=== PATIENT | male | born 1935 | race Caucasian/White ===

== ENCOUNTER 2017-06-20 07:42 | Day surgery (SDC) | payer OTHER ==
[~2017-06-20] VITALS: Ht 190.5 cm; Wt 89.8 kg
[2017-06-20 08:30] VITALS: BP 153/82
[2017-06-20] MEDS ORDERED: PLEASE ENTER ALLERGIES MC SCH ×2 (08:30)
[2017-06-20] MEDS ORDERED: PLEASE ENTER HEIGHT AND WEIGHT MC SCH (08:30)
[2017-06-20] MEDS ORDERED: SODIUM CHLORIDE 0.9% 1,000 ML IV SCH (08:32)
[2017-06-20] MEDS ORDERED: MIDAZOLAM 1 MG/ML, 5ML ONE (08:52)
[2017-06-20] MEDS ORDERED: FLUMAZENIL 0.1 MG/1 ML, 5ML ONE (08:52)
[2017-06-20] MEDS ORDERED: NALOXONE 1 MG/ML, 2ML ONE (08:52)
[2017-06-20] MEDS ORDERED: FENTANYL PF 100 MCG/2ML ONE ×2 (08:52)
[2017-06-20] MEDS ORDERED: VANCOMYCIN PMX 1GM/200ML 200 ML IV ONE (09:00)
[2017-06-20] MEDS ORDERED: LIDOCAINE 2%, 20ML ONE (09:17)
== END 2017-06-20 12:30 ==
LOC: OUT 07:42
PROVIDERS: ATTEND Student in an Organized Health Care Education/Training Program
DX: N31.9 Neuromuscular dysfunction of bladder, unspecified (principal); I25.2 Old myocardial infarction; I10 Essential (primary) hypertension; Z88.0 Allergy status to penicillin
CPT/HCPCS: 51102; 75989; 76942; 99156; 99157; C1725; C1769; C1894; J2250; J3010; J3370; J3490; J7030; J2310

== ENCOUNTER 2018-02-05 16:04 | Inpatient (IN) | payer OTHER ==
[~2018-02-05] VITALS: Ht 190.5 cm; Wt 92.4 kg
[2018-02-05] MEDS ORDERED: ASPI-614 PO (16:47)
[2018-02-05] MEDS ORDERED: AMLO5TAB2 PO (16:47)
[2018-02-05] MEDS ORDERED: METO50TA4 PO (16:47)
[2018-02-05] MEDS ORDERED: MULT-412 PO (16:47)
[2018-02-05] MEDS ORDERED: ATOR40TA78 PO (16:47)
[2018-02-05] MEDS ORDERED: ASPIRIN 81 MG TABLET CHEW ONE (16:54)
[2018-02-05] MEDS ORDERED: ASPIRIN 81 MG TABLET CHEW PO ONE (17:00)
[2018-02-05 17:09] LABS: BASOPHILS # (AUTO) 0.02 x10^3/uL (0-0.1); BASOPHILS % (AUTO) 0 % (0-1); EOSINOPHILS # (AUTO) 0.13 x10^3/uL (0-0.4); EOSINOPHILS % (AUTO) 2 % (1-7); LYMPHOCYTES # (AUTO) 1.34 x10^3/uL (1-3.4); LYMPHOCYTES % (AUTO) 17 % (22-44); MD NO; MEAN CORPUSCULAR HEMOGLOBIN 31.6 pg (27.5-34.5); MEAN CORPUSCULAR HGB CONC 34.5 g/dL (33.2-36.2); MEAN CORPUSCULAR VOLUME 91.6 fL (81-97); MEAN PLATELET VOLUME 7.2 fL (7.4-10.4); MONOCYTES # (AUTO) 0.87 x10^3/uL (0.2-0.8); MONOCYTES % (AUTO) 11 % (2-9); NEUTROPHILS # (AUTO) 5.63 x10^3/uL (1.8-6.8); NEUTROPHILS % (AUTO) 71 % (42-75); PLATELET COUNT 190 x10^3/uL (130-400); RED BLOOD COUNT 4.69 x10^6/uL (4.38-5.82); RED CELL DISTRIBUTION WIDTH 14.2 % (9.4-14.8)
[2018-02-05 17:18] LABS: ALANINE AMINOTRANSFERASE 34 U/L (12-78); ALBUMIN 3.9 g/dL (3.4-5.0); ANION GAP 6 mmol/L (5-15); CALCIUM 9.2 mg/dL (8.5-10.1); CHLORIDE 104 mmol/L (98-107); CREATININE 1.26 mg/dL (0.7-1.3)
[2018-02-05 17:22] LABS: ALKALINE PHOSPHATASE 102 U/L (45-117); BILIRUBIN,TOTAL 1.2 mg/dL (0.2-1.0); TOTAL PROTEIN 8.2 g/dL (6.4-8.2); TROPONIN I 0.066 ng/mL (0.000-0.045)
[2018-02-05 20:00] VITALS: BP 176/87
[2018-02-05] MEDS ORDERED: SODIUM CHLORIDE FLUSH 10ML SYR IVF PRN (20:00)
[2018-02-05] MEDS ORDERED: morphine SULFATE 10 MG/ML, 1ML IVPush PRN (20:00)
[2018-02-05] MEDS ORDERED: DOCUSATE 100 MG CAPSULE PO PRN (20:00)
[2018-02-05] MEDS ORDERED: hydrALAzine 20 MG/ML, 1ML IVPush PRN (20:00)
[2018-02-05] MEDS ORDERED: ONDANSETRON 2MG/ML, 2ML IVPush PRN (20:00)
[2018-02-05] MEDS ORDERED: OXYcodone IR 5MG TABLET PO PRN (20:00)
[2018-02-05] MEDS ORDERED: ONDANSETRON ODT 4 MG PO PRN (20:00)
[2018-02-05] MEDS ORDERED: PROMETHAZINE 25 MG/ML, 1ML IM PRN (20:00)
[2018-02-05] MEDS ORDERED: ACETAMINOPHEN 325 MG TABLET PO PRN (20:00)
[2018-02-05] MEDS ORDERED: POLYETHYLENE GLYCOL 17 GM PACKET PO PRN (20:00)
[2018-02-05] MEDS ORDERED: BISACODYL 10 MG SUPP PR PRN (20:00)
[2018-02-05 20:41] LABS: FREE T4 (FREE THYROXINE) 1.2 ng/dL (0.76-1.46); HEMOGLOBIN A1C 5.7 % (4.2-6.3); THYROID STIMULATING HORMONE 2.31 mIU/L (0.358-3.740)
[2018-02-05] MEDS: HEPARIN 5,000 UNITS/ML, 1ML SQ SCH (22:09)
[2018-02-05] MEDS: LOSARTAN 25MG TABLET PO SCH (22:09)
[2018-02-05] MEDS: ATORVASTATIN 40 MG TABLET PO SCH (22:09)
[2018-02-05] MEDS ORDERED: OMNIPAQUE 350 MG/ML, 100ML BOTTLE ONE (22:12)
[2018-02-05 22:13] VITALS: BP 169/78
[2018-02-06] MEDS ORDERED: POTASSIUM CHLORIDE 40 MEQ in SODIUM CHLORIDE 0.9% 500 ML IV ONE
[2018-02-06 00:04] LABS: MICROSCOPIC AUTO
[2018-02-06 00:05] LABS: CULTURE INDICATED? YES
[2018-02-06 00:15] LABS: TROPONIN I 0.346 ng/mL (0.000-0.045)
[2018-02-06 02:00] VITALS: BP 144/68
[2018-02-06 05:32] LABS: BASOPHILS # (AUTO) 0.03 x10^3/uL (0-0.1); BASOPHILS % (AUTO) 0 % (0-1); EOSINOPHILS # (AUTO) 0.14 x10^3/uL (0-0.4); EOSINOPHILS % (AUTO) 2 % (1-7); LYMPHOCYTES # (AUTO) 0.95 x10^3/uL (1-3.4); LYMPHOCYTES % (AUTO) 12 % (22-44); MD NO; MEAN CORPUSCULAR HEMOGLOBIN 31.3 pg (27.5-34.5); MEAN CORPUSCULAR HGB CONC 34.4 g/dL (33.2-36.2); MEAN CORPUSCULAR VOLUME 90.8 fL (81-97); MEAN PLATELET VOLUME 7.3 fL (7.4-10.4); MONOCYTES % (AUTO) 9 % (2-9); NEUTROPHILS % (AUTO) 77 % (42-75); PLATELET COUNT 138 x10^3/uL (130-400); RED BLOOD COUNT 4.03 x10^6/uL (4.38-5.82); RED CELL DISTRIBUTION WIDTH 14.3 % (9.4-14.8)
[2018-02-06 05:40] LABS: CHLORIDE 104 mmol/L (98-107)
[2018-02-06 05:51] LABS: TROPONIN I 0.423 ng/mL (0.000-0.045)
[2018-02-06 05:58] LABS: ALANINE AMINOTRANSFERASE 28 U/L (12-78); ALBUMIN 3.1 g/dL (3.4-5.0); ALKALINE PHOSPHATASE 80 U/L (45-117); ANION GAP 8 mmol/L (5-15); BILIRUBIN,TOTAL 1.4 mg/dL (0.2-1.0); CALCIUM 8.4 mg/dL (8.5-10.1); CHOL/HDL RATIO 2.8; CHOLESTEROL, TOTAL 99 mg/dL (140-239); CREATININE 1.16 mg/dL (0.7-1.3); HDL CHOL % 35 % (26-37); HDL CHOLESTEROL (DIRECT) 35 mg/dL (40-60); LDL CHOLESTEROL,CALCULATED 47 mg/dL (54-169); LDL/HDL RATIO 1.3 (0.5-3.0); TOTAL PROTEIN 6.8 g/dL (6.4-8.2); TRIGLYCERIDES 86 mg/dL (50-200); VLDL CHOLESTEROL 17 mg/dL (0-25)
[2018-02-06] MEDS: ASPIRIN 325 MG TABLET EC PO SCH (06:00)
[2018-02-06] MEDS: HEPARIN 5,000 UNITS/ML, 1ML SQ SCH ×3 (06:01→21:15)
[2018-02-06 06:55] VITALS: BP 161/75
[2018-02-06] MEDS ORDERED: ASPIRIN 81 MG TABLET CHEW PO SCH (09:00)
[2018-02-06] MEDS: METOPROLOL SUCCINATE 50 MG TAB.ER.24H PO SCH (09:10)
[2018-02-06] MEDS: MULTIVITAMINS/MINERALS TABLET PO SCH (09:10)
[2018-02-06] MEDS: LOSARTAN 25MG TABLET PO SCH ×2 (09:10→21:14)
[2018-02-06] MEDS: AMLODIPINE 5 MG TABLET PO SCH (09:10)
[2018-02-06 10:45] VITALS: BP 155/74
[2018-02-06 11:16] LABS: TROPONIN I 0.785 ng/mL (0.000-0.045)
[2018-02-06] MEDS ORDERED: REGADENOSON 0.4 MG/5 ML SYRINGE ONE (13:13)
[2018-02-06 14:49] VITALS: BP 164/73
[2018-02-06 18:51] VITALS: BP 149/79
[2018-02-06] MEDS: ATORVASTATIN 40 MG TABLET PO SCH (21:15)
[2018-02-07 01:07] VITALS: BP 153/70
[2018-02-07] MEDS: HEPARIN 5,000 UNITS/ML, 1ML SQ SCH ×2 (06:02→14:26)
[2018-02-07] MEDS: ASPIRIN 325 MG TABLET EC PO SCH (06:02)
[2018-02-07 07:51] LABS: BASOPHILS # (AUTO) 0.02 x10^3/uL (0-0.1); BASOPHILS % (AUTO) 0 % (0-1); EOSINOPHILS # (AUTO) 0.16 x10^3/uL (0-0.4); EOSINOPHILS % (AUTO) 3 % (1-7); LYMPHOCYTES # (AUTO) 1.02 x10^3/uL (1-3.4); LYMPHOCYTES % (AUTO) 16 % (22-44); MD NO; MEAN CORPUSCULAR HEMOGLOBIN 31.5 pg (27.5-34.5); MEAN CORPUSCULAR HGB CONC 34.5 g/dL (33.2-36.2); MEAN CORPUSCULAR VOLUME 91.3 fL (81-97); MEAN PLATELET VOLUME 7.5 fL (7.4-10.4); MONOCYTES # (AUTO) 0.63 x10^3/uL (0.2-0.8); MONOCYTES % (AUTO) 10 % (2-9); NEUTROPHILS # (AUTO) 4.42 x10^3/uL (1.8-6.8); NEUTROPHILS % (AUTO) 71 % (42-75); PLATELET COUNT 153 x10^3/uL (130-400); RED BLOOD COUNT 4.46 x10^6/uL (4.38-5.82); RED CELL DISTRIBUTION WIDTH 14.2 % (9.4-14.8)
[2018-02-07 07:54] LABS: ANION GAP 8 mmol/L (5-15); CALCIUM 8.9 mg/dL (8.5-10.1); CHLORIDE 106 mmol/L (98-107); CREATININE 1.22 mg/dL (0.7-1.3)
[2018-02-07 07:58] LABS: TROPONIN I 0.675 ng/mL (0.000-0.045)
[2018-02-07 08:06] VITALS: BP 161/79
[2018-02-07] MEDS: MULTIVITAMINS/MINERALS TABLET PO SCH (08:07)
[2018-02-07] MEDS: LOSARTAN 25MG TABLET PO SCH (08:07)
[2018-02-07] MEDS: METOPROLOL SUCCINATE 50 MG TAB.ER.24H PO SCH (08:07)
[2018-02-07] MEDS: AMLODIPINE 5 MG TABLET PO SCH (08:07)
[2018-02-07 14:45] VITALS: BP 164/81
[2018-02-07] MEDS ORDERED: LOSA25TA2 PO (16:38)
[2018-02-07] MEDS ORDERED: AMLO5TAB2 PO (16:38)
== END 2018-02-07 20:22 | disposition home or self-care (01) | DRG 313 ==
LOC: ED 19:36 → EDIP 19:38 → 5SO 20:45
PROVIDERS: ADMIT Internal Medicine; ATTEND Internal Medicine
DX: R07.89 Other chest pain (principal); N39.0 Urinary tract infection, site not specified; J98.11 Atelectasis; I24.8 Other forms of acute ischemic heart disease; I50.9 Heart failure, unspecified; I11.0 Hypertensive heart disease with heart failure; I25.10 Atherosclerotic heart disease of native coronary artery without angina pectoris; E78.5 Hyperlipidemia, unspecified; E87.6 Hypokalemia; Z95.0 Presence of cardiac pacemaker; Z95.1 Presence of aortocoronary bypass graft; Z79.899 Other long term (current) drug therapy; Z79.1 Long term (current) use of non-steroidal anti-inflammatories (NSAID); Z90.49 Acquired absence of other specified parts of digestive tract; Z88.0 Allergy status to penicillin; Z91.040 Latex allergy status
CPT/HCPCS: 0399T; 36415; 71045; 71275; 78452; 80048; 80053; 80061; 81001; 83036; 83735; 83880; 84439; 84443; 84484; 85025; 85379; 87077; 87086; 87186; 93005; 93017; 93306; J1644; J2785; J3480; Q9967; A9502; C9898; J7040

== ENCOUNTER 2019-02-13 12:55 | Emergency (ER) | payer MEDICARE, OTHER ==
[~2019-02-13] VITALS: Ht 190.5 cm; Wt 92.0 kg
[~2019-02-13 12:55] MED LIST: AMLO-150 PO; ASPI-614 PO; ATOR40TA78 PO; LOSA25TA2 PO; METO50TA4 PO; MULT-412 PO
[2019-02-13] MEDS ORDERED: FOSFOMYCIN 3 GM PACKET PO STA (13:53)
[2019-02-13] MEDS ORDERED: FOSFOMYCIN 3 GM PACKET ONE (14:11)
[2019-02-13] MEDS ORDERED: LOSA50TA14 PO (14:25)
[2019-02-13] MEDS ORDERED: VIT1CAPS11 PO (14:25)
[2019-02-13 14:38] VITALS: BP 127/52
--- NOTE | 2019-02-13 14:39 | NUR ---
Patient/Caregiver given discharge instructions and they have confirmed that they understand the instructions. Patient ambulatory with steady gait.
== END 2019-02-13 14:54 | disposition home or self-care (01) ==
LOC: ED 14:42
DX: T83.511A Infection and inflammatory reaction due to indwelling urethral catheter, initial encounter (principal); N30.00 Acute cystitis without hematuria; I11.9 Hypertensive heart disease without heart failure; I25.10 Atherosclerotic heart disease of native coronary artery without angina pectoris; Z95.1 Presence of aortocoronary bypass graft
CPT/HCPCS: 99283

== ENCOUNTER 2019-12-14 15:01 | Emergency (ER) | payer MEDICARE ==
[~2019-12-14] VITALS: Ht 190.5 cm; Wt 93.3 kg
[~2019-12-14 15:01] MED LIST changes: +LOSA50TA14 PO; +VIT1CAPS11 PO
--- NOTE | 2019-12-14 15:22 | NUR ---
PT SENT FROM TO GET TREATMENT FOR UTI AND POSSIBLE PYLO. PT HAS A SUPRAPUBICL CATHETER. PT ACCOMPANIED BY .
[2019-12-14 16:07] LABS: BASOPHILS # (AUTO) 0.02 x10^3/uL (0-0.1); BASOPHILS % (AUTO) 0 % (0-1); EOSINOPHILS # (AUTO) 0.15 x10^3/uL (0-0.4); EOSINOPHILS % (AUTO) 2 % (1-7); LYMPHOCYTES # (AUTO) 0.96 x10^3/uL (1-3.4); LYMPHOCYTES % (AUTO) 16 % (22-44); MD NO; MEAN CORPUSCULAR HEMOGLOBIN 31.7 pg (27.5-34.5); MEAN CORPUSCULAR VOLUME 93.3 fL (81-97); MEAN PLATELET VOLUME 7.6 fL (7.4-10.4); MONOCYTES # (AUTO) 0.68 x10^3/uL (0.2-0.8); MONOCYTES % (AUTO) 11 % (2-9); NEUTROPHILS # (AUTO) 4.34 x10^3/uL (1.8-6.8); NEUTROPHILS % (AUTO) 71 % (42-75); PLATELET COUNT 163 x10^3/uL (130-400); RED BLOOD COUNT 4.43 x10^6/uL (4.38-5.82); RED CELL DISTRIBUTION WIDTH 13.4 % (9.4-14.8)
[2019-12-14 16:15] LABS: ALANINE AMINOTRANSFERASE 28 U/L (12-78); ALBUMIN 3.5 g/dL (3.4-5.0); ANION GAP 5 mmol/L (5-15); CALCIUM 8.9 mg/dL (8.5-10.1); CHLORIDE 107 mmol/L (98-107)
[2019-12-14 16:18] LABS: ALKALINE PHOSPHATASE 80 U/L (45-117); BILIRUBIN,TOTAL 0.8 mg/dL (0.2-1.0); CREATININE 1.97 mg/dL (0.7-1.3); TOTAL PROTEIN 8.1 g/dL (6.4-8.2)
[2019-12-14 16:21] LABS: MICROSCOPIC INDICATED
[2019-12-14 16:32] LABS: CULTURE INDICATED? YES
[2019-12-14 16:39] VITALS: BP 127/60
--- NOTE | 2019-12-14 16:39 | NUR ---
PT RESTING IN [facility]. FAMILY BEDSIDE. AWAITING UA RESULTS. MD TO SEE
[2019-12-14] MEDS ORDERED: FOSFOMYCIN 3 GM PACKET PO ONE (17:00)
[2019-12-14] MEDS ORDERED: FOSFOMYCIN 3 GM PACKET ONE (17:16)
== END 2019-12-14 17:29 | disposition home or self-care (01) ==
LOC: ED 16:15
DX: N30.01 Acute cystitis with hematuria (principal); E78.5 Hyperlipidemia, unspecified; I11.0 Hypertensive heart disease with heart failure; I50.9 Heart failure, unspecified; I25.10 Atherosclerotic heart disease of native coronary artery without angina pectoris; Z90.49 Acquired absence of other specified parts of digestive tract; Z95.1 Presence of aortocoronary bypass graft
CPT/HCPCS: 36415; 80053; 81001; 85025; 87077; 87086; 99283

== ENCOUNTER → 2020-04-15 | Outpatient (CLI) | payer MEDICARE ==
[~2020-04-15] MED LIST changes: +OMNIPAQUE 350 MG/ML, 100ML BOTTLE ONE
== END | disposition home or self-care (01) ==
LOC: CFH 13:30
PROVIDERS: ATTEND Physician Assistant
DX: N26.1 Atrophy of kidney (terminal) (principal)
CPT/HCPCS: 74178; 82565; Q9967

== ENCOUNTER 2021-01-14 13:03 | Observation (INO) | payer MEDICARE ==
[2021-01-13 11:35] VITALS: BP 125/76
[~2021-01-14] VITALS: Ht 190.5 cm; Wt 93.0 kg
[~2021-01-14 13:03] MED LIST changes: +CEPH-375 PO; -OMNIPAQUE 350 MG/ML, 100ML BOTTLE ONE; +SERT-331 PO
[2021-01-14] MEDS ORDERED: CIPRO PO (13:51)
[2021-01-14] MEDS ORDERED: CHLORHEXIDINE 15 ML UDC ONE (13:55)
[2021-01-14] MEDS ORDERED: LACTATED RINGERS 1,000 ML IV SCH (14:00)
[2021-01-14] MEDS ORDERED: CHLORHEXIDINE 15 ML UDC PO ONE (14:00)
[2021-01-14] MEDS ORDERED: FENTANYL PF 100 MCG/2ML ONE ×3 (14:44→17:07)
[2021-01-14] MEDS ORDERED: MIDAZOLAM 1 MG/ML, 2ML ONE (14:59)
[2021-01-14] MEDS ORDERED: ONDANSETRON 2MG/ML, 2ML IVPush PRN (15:00)
[2021-01-14] MEDS ORDERED: ACETAMINOPHEN 325 MG TABLET PO PRN (15:00)
[2021-01-14] MEDS ORDERED: LABETALOL 5MG/ML, 20ML IV PRN (15:00)
[2021-01-14] MEDS ORDERED: CEFAZOLIN 1,000 MG ONE (15:14)
[2021-01-14] MEDS ORDERED: PROPOFOL 10 MG/ML, 20ML ONE (15:14)
[2021-01-14] MEDS ORDERED: ONDANSETRON 2MG/ML, 2ML ONE (15:14)
[2021-01-14] MEDS ORDERED: OPIUM/BELLADONNA SUPP.RECT 16.2-30 MG ONE (15:45)
[2021-01-14] MEDS: FENTANYL PF 100 MCG/2ML IV PRN ×4 (15:51→17:15)
[2021-01-14] MEDS ORDERED: OPIUM/BELLADONNA SUPP.RECT 16.2-30 MG PR PRN ×2 (16:00→19:00)
[2021-01-14] MEDS ORDERED: OXYcodone 5 MG/5 ML ORAL.SOL UDC ONE ×2 (16:11→17:35)
[2021-01-14] MEDS ORDERED: ACETAMINOPHEN 650 MG/20.3 ML UDC ONE (16:11)
[2021-01-14] MEDS: OXYcodone 5 MG/5 ML ORAL.SOL UDC PO PRN ×2 (16:14→17:40)
[2021-01-14] MEDS ORDERED: hydrALAzine 20 MG/ML, 1ML ONE (16:26)
[2021-01-14] MEDS ORDERED: HYDROmorphone 1 MG/ML, 1ML INJ ONE (17:34)
[2021-01-14] MEDS: HYDROmorphone 1 MG/ML, 1ML INJ IVPush PRN ×2 (18:54→19:01)
[2021-01-14] MEDS ORDERED: OXYcodone 5 MG/5 ML ORAL.SOL UDC PO PRN (19:00)
[2021-01-14 21:07] VITALS: BP 126/75
[2021-01-14] MEDS: ACETAMINOPHEN 325 MG TABLET PO SCH (21:17)
[2021-01-14] MEDS: DOCUSATE 100 MG CAPSULE PO SCH (21:17)
[2021-01-15 00:28] VITALS: BP 158/70
[2021-01-15 03:36] VITALS: BP 149/75
[2021-01-15] MEDS: ACETAMINOPHEN 325 MG TABLET PO SCH ×2 (03:44→09:11)
[2021-01-15 07:02] VITALS: BP 153/77
[2021-01-15] MEDS: DOCUSATE 100 MG CAPSULE PO SCH (08:30)
[2021-01-15] MEDS ORDERED: POLYETHYLENE GLYCOL 17 GM PACKET PO SCH (09:00)
[2021-01-15 11:00] VITALS: BP 150/73
== END 2021-01-15 12:01 | disposition home or self-care (01) ==
LOC: OR 13:03 → 4NE 20:45 → OR 23:29 → INTOOBSV 23:29 → DCLOUNGE 01-15 11:54
PROVIDERS: ADMIT Student in an Organized Health Care Education/Training Program; ATTEND Student in an Organized Health Care Education/Training Program
DX: N32.89 Other specified disorders of bladder (principal); Z20.822 Contact with and (suspected) exposure to COVID-19; N39.0 Urinary tract infection, site not specified; G89.29 Other chronic pain; R33.9 Retention of urine, unspecified; I25.10 Atherosclerotic heart disease of native coronary artery without angina pectoris; I11.0 Hypertensive heart disease with heart failure; I50.9 Heart failure, unspecified; E78.5 Hyperlipidemia, unspecified; F32.9 Major depressive disorder, single episode, unspecified; Z91.040 Latex allergy status; Z79.899 Other long term (current) drug therapy; Z95.1 Presence of aortocoronary bypass graft; Z95.0 Presence of cardiac pacemaker
CPT/HCPCS: 52287; G0378; J0690; J1170; J2250; J2405; J2704; J3010; J7120; U0003; U0005